=== PATIENT | female | born 1960 | race Caucasian/White ===

== ENCOUNTER 2016-11-11 09:31 | Day surgery (SDC) | payer OTHER ==
--- NOTE | ~2016-11-11 | OP ---
Record Of Operation [facility] [address] [place]. [address] NAME: DAVID LUCAS : 56 STATUS : [facility]#: [id number] AGE: 56 ADM/REG DATE : 11/11/16 MR#: [id number] REPORT SERV DATE: 11/14/16 DICTATED BY: LAWRENCE ARNOLD JR. DATE: 11/11/16 REPORT STATUS : Draft TRANSCRIBED BY: MODL DATE: 11/11/16 DATE OF PROCEDURE: REASON FOR SURGERY: This 56-year-old patient, presents with a large malignancy in the right breast. 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 She is in need of venous access for chemotherapy. PREOPERATIVE DIAGNOSIS: Carcinoma right breast, with need of venous access for chemotherapy. POSTOPERATIVE DIAGNOSIS: Carcinoma right breast, with need of venous access for chemotherapy. SURGEON: Lawrence Arnold M.D. SURGERY PERFORMED: Insertion of PowerPort venous port. PROCEDURE IN DETAIL: With anesthesia support, the patient was prepped and draped in supine position in usual sterile fashion. 1% Xylocaine was used to anesthetize the infraclavicular region on the left side. The needle and wire were inserted into the vein without difficulty. Fluoroscopy was used throughout. The area was anesthetized, and incision made. The port site was created. The catheter was inserted into the vein through a Tear-Away introducer. The port system was assembled, aspirated, flushed, and secured to the chest wall with Prolene. Final fluoroscopy revealed correct positioning of the catheter tip with no kinking or notching. The wound was irrigated hemostasis obtained. The wound was closed with three layers of Monocryl. The patient tolerated the procedure well without any complications. ESTIMATED BLOOD LOSS: Negligible. SPONGE COUNT: Correct. MR/MODL Lawrence Arnold Jr., M.D. / [id number] CC: Crow Alegre Jr., DAVID * Darrell Johnson, M.D. [facility] TONE TYSON MD Record Of Operation [facility] [address] [place] [address] NAME: DAVID LUCAS : 56 STATUS : [facility] PAT#: [id number] AGE: 56 ADM/REG DATE : 11/11/16 MR#: [id number] REPORT SERV DATE: 11/14/16 DICTATED BY: LAWRENCE ARNOLD JR. DATE: 11/11/16 REPORT STATUS : Draft TRANSCRIBED BY: MODL DATE: 11/11/16 ANUJA DICKENS
[~2016-11-11 09:31] MED LIST: AMB10 PO; AMB5 PO; CIMZIA SC; FLAG500TAB PO; FLEX PO; FOLIC PO; HYZAAR 50/12.51 TAB PO; KLONO5 PO; LEVAQUIN750 MG PO; MAXIMUM D3 PO; MEXATE250 PO; NEUR300 PO; NORCO1 TAB PO; NORV5 PO; OXYCOD PO; P20 PO; PR25 PO; PRILOSEC40 MG PO; PROVHFA INH; QVAR40 MC1 PO
[2017-01-11] MEDS ORDERED: KLOR-CON 1010 MEQ PO (10:33)
[2017-01-11] MEDS ORDERED: LEVAQUIN750 MG PO (10:33)
[2017-01-11] MEDS ORDERED: ZOFRAN ODT4 MG PO (10:34)
== END 2016-11-11 14:54 | disposition home or self-care (01) ==
LOC: SDC 09:31
PROVIDERS: Surgery Surgical Oncology
PROC: 02HK3NZ Insertion of Intracardiac Pacemaker into Right Ventricle, Percutaneous Approach (ICD-10-PCS; principal; 2016-11-11 11:15)
DX: C50.911 Malignant neoplasm of unspecified site of right female breast (principal); I10 Essential (primary) hypertension; J45.909 Unspecified asthma, uncomplicated; M19.90 Unspecified osteoarthritis, unspecified site; K50.90 Crohn's disease, unspecified, without complications; Z90.710 Acquired absence of both cervix and uterus; Z98.890 Other specified postprocedural states; Z88.0 Allergy status to penicillin; Z88.8 Allergy status to other drugs, medicaments and biological substances
CPT/HCPCS: 0159T; 71010; 77001; 93005; A9270-GY; C1751; C8908; J2250; J2370; J3010; J3370